=== PATIENT | female | born 2000 | race Caucasian/White ===

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

== ENCOUNTER 2022-10-23 20:24 | Emergency (ER) | payer OTHER ==
[2022-10-23 20:48] VITALS: PULSE 76; RESP 19; TEMP 98.7; BMI 31.8
[2022-10-23 20:50] VITALS: BP 117/71
[2022-10-23 21:48] LABS: EPI CELLS 35 /uL (0-25.1); HYALINE CASTS 4 /uL (0-3.1); URINE APPEARANCE TURBID; URINE BACTERIA 7710 /uL (0-1359); URINE BILIRUBIN NEGATIVE (NEGATIVE); URINE COLOR YELLOW; URINE GLUCOSE (UA) NEGATIVE (NEGATIVE); URINE KETONE TRACE (NEGATIVE); URINE LEUK ESTERASE 3+ (NEGATIVE); URINE NITRITE POSITIVE (NEGATIVE); URINE PROTEIN 3+ (NEGATIVE); URINE RBC 988 /uL (0-23.9); URINE WBC 8263 /uL (0-25.8)
[2022-10-23] MEDS ORDERED: IBUPROFEN 600 MG TABLET (FP) PO ONE ×2 (22:24→22:26)
[2022-10-23] MEDS ORDERED: CEPHALEXIN MONOHYDRATE 500 MG CAPSULE (UD) PO ONE (22:25)
[2022-10-23] MEDS ORDERED: CEPHALEXIN MONOHYDRATE 500 MG CAPSULE (UD) ONE (22:26)
== END 2022-10-23 22:34 | disposition home or self-care (01) ==
LOC: JERFT 20:24
DX: N30.00 Acute cystitis without hematuria (principal)
CPT/HCPCS: 81003; 84703; 87086; 87186; 99283-25

== ENCOUNTER 2022-10-31 16:12 | Emergency (ER) | payer OTHER ==
[2022-10-31 16:46] VITALS: BP 112/64; PULSE 82; RESP 20; TEMP 98.1; BMI 30.9
[2022-10-31] MEDS ORDERED: predniSONE 20 MG TABLET (UD) PO ONE (17:33)
[2022-10-31] MEDS ORDERED: predniSONE 20 MG TABLET (UD) ONE (17:36)
== END 2022-10-31 17:43 | disposition home or self-care (01) ==
LOC: JERFT 16:12
DX: T78.40XA Allergy, unspecified, initial encounter (principal)
CPT/HCPCS: 99283-25

== ENCOUNTER 2023-02-18 15:38 | Emergency (ER) | payer OTHER ==
[2023-02-18 16:01] VITALS: BP 118/67; PULSE 74; RESP 18; TEMP 98.4; BMI 31.1
[2023-02-18] MEDS ORDERED: FLUCONAZOLE 150 MG TABLET PO ONE ×2 (16:39→16:42)
== END 2023-02-18 16:58 | disposition home or self-care (01) ==
LOC: JER 15:38
DX: N89.8 Other specified noninflammatory disorders of vagina (principal); B37.31 Acute candidiasis of vulva and vagina
CPT/HCPCS: 87070; 87077; 87205; 99283-25

== ENCOUNTER 2023-06-23 11:03 | Emergency (ER) | payer OTHER ==
[2023-06-23 11:16] VITALS: BP 103/65; PULSE 72; RESP 17; TEMP 98.1; BMI 31.8
[2023-06-23] MEDS ORDERED: FLUCONAZOLE 150 MG TABLET PO ONE ×3 (11:36→12:15)
[2023-06-23 13:20] LABS: PH,URINE 6.5 (5.0-8.0); URINE APPEARANCE Clear; URINE BILIRUBIN Negative (NEGATIVE); URINE COLOR Yellow; URINE GLUCOSE (UA) Negative (NEGATIVE); URINE KETONE Negative (NEGATIVE); URINE LEUK ESTERASE 1+ (NEGATIVE); URINE NITRITE Negative (NEGATIVE); URINE PROTEIN Negative (NEGATIVE); URINE UROBILINOGEN 0.2 mg/dL (0.2-1.0)
[2023-06-23 13:25] LABS: EPI CELLS 24.5 /uL (0-25.1); HYALINE CASTS 1.16 /uL (0-3.1); URINE BACTERIA 1492.2 /uL (0-1359); URINE RBC 18.2 /uL (0-23.9); URINE WBC 294.6 /uL (0-25.8)
== END 2023-06-23 14:15 | disposition home or self-care (01) ==
LOC: JERFT 11:03
DX: R10.30 Lower abdominal pain, unspecified (principal); R35.0 Frequency of micturition; R39.15 Urgency of urination; L29.2 Pruritus vulvae; N39.0 Urinary tract infection, site not specified; B37.31 Acute candidiasis of vulva and vagina
CPT/HCPCS: 81003; 84703; 87086; 87186; 99283-25